=== PATIENT | female | born 1985 | race Hispanic/Latino ===

== ENCOUNTER 2020-10-13 20:55 | Emergency (ER) | payer OTHER, SELFPAY ==
--- NOTE | 2020-10-13 23:08 | ER ---
Nurse's Notes [facility] Name: Skylar Almendarez Age: 34 yrs Sex: Female : 1985 Arrival Date: 10/13/2020 Time: 20:59 Bed Waiting Private MD: Diagnosis: Presentation: 10/13 21:35 Chief complaint: Patient states: N/V with chills/hot int. for 4 days this past week. ll1 Tried dramamine, no help. No fever. Coronavirus screen: Client denies travel out of the [place] in the last 14 days. At this time, the client does not indicate any symptoms associated with coronavirus-19. Ebola Screen: Patient denies travel to an Ebola-affected area in the 21 days before illness onset. Initial Sepsis Screen: Does the patient meet any 2 criteria? No. Patient's initial sepsis screen is negative. Does the patient have a suspected source of infection? Yes: Other: n/v. Risk Assessment: Do you want to hurt yourself or someone else? Patient reports no desire to harm self or others. Onset of symptoms was October 07, 2020. 21:35 Method Of Arrival: Ambulatory ll1 21:35 Acuity: IRINA 3 ll1 Historical: - Allergies: 21:37 No Known Allergies; ll1 - PSHx: 21:37 ; Tubal ligation; Two breast surgeries; ll1 - Immunization history:: Flu vaccine is up to date. - Social history:: Smoking status: Patient denies any tobacco usage or history of. Vital Signs: 21:35 BP 156 / 99; Pulse 86; Resp 16; Temp 98.8; Pulse Ox 99% ; Weight 70.76 kg; Height 5 ft. ll1 7 in. (170.18 cm); Pain 0/10; 21:35 Body Mass Index 24.43 (70.76 kg, 170.18 cm) ll1 ED Course: 20:59 Patient arrived in ED. bp1 21:34 Arm band placed on. ll1 21:36 Triage completed. ll1 Administered Medications: No medications were administered Outcome: 23:07 Eloped from waiting room, before seeing physician Time discovered patient gone: lp1 October 13, 2020 at 23:07 23:07 Patient left the ED. lp1 Signatures: Milady Mejia RN RN lp1 Farrah Hart, RN RN ll1 Ivelisse, Jeni bp1
[2020-10-13 23:38] VITALS: BP 156/99; TEMP 98.8; O2SAT 99
== END 2020-10-13 23:07 | disposition left against medical advice (07) ==
LOC: ER 20:55
DX: Z53.21 Procedure and treatment not carried out due to patient leaving prior to being seen by health care provider (principal)
CPT/HCPCS: 99281